=== PATIENT | male | born 1995 | race African-American/Black ===

== ENCOUNTER 2017-11-14 23:31 | Emergency (ER) | payer BC, OTHER ==
[~2017-11-14] VITALS: Ht 175.3 cm; Wt 59.4 kg
[~2017-11-14 23:31] MED LIST: MULT-506 PO
[2017-11-14 23:36] VITALS: TEMP 36.9; Ht 175.3 cm; Wt 59.4 kg
--- NOTE | 2017-11-14 23:52 | EMERGENCY ROOM VISIT NOTE ---
History Report prepared by Mary: Silver Caldera Under the Supervision of: Dr. Ana Luisa Moreland D.O. First contact with patient: 23:39 Chief Complaint: ANKLE PAIN Stated Complaint: SPRAINED LT ANKLE, PAIN History of Present Illness The patient is a 22 year old male who presents to the Emergency Room with complaints of constant left ankle pain and swelling beginning 2 hours ago. The patient states he was playing basketball earlier when he landed on someone else' s foot. He reports he inverted his ankle and sprained it. The patient notes he fell to the ground, and he has rolled his ankle before. He denies taking anything for pain and any other symptoms other than his ankle pain. Source of History: patient Onset: 2 hours ago Position: ankle (left) Quality: other (pain and swelling) Timing: constant Note: Pt denies any other symptoms than his left ankle pain and swelling. Review of Systems The patient denies any injury other than his left ankle pain and swelling. Past Medical & Surgical Medical Problems: (1) No Known Active Medical Problems Family History Diabetes mellitus Hypertension Kidney disease Kidney stones Social History Smoking Status: Never Smoker Marital Status: single Housing Status: lives with roommate Occupation Status: [employer] student Current/Historical Medications No Active Prescriptions or Reported Meds Allergies Coded Allergies: No Known Allergies (Unverified , 11/14/17) Physical Exam Vital Signs Date Time Temp Pulse Resp B/P (MAP) Pulse Ox O2 Delivery O2 Flow Rate FiO2 11/15/17 00:50 56 20 118/70 95 11/14/17 23:36 36.9 62 18 117/71 99 Room Air Physical Exam Left lower extremity exam: No tenderness with palpation of the left knee or tibial plateau or fibular head. Significant edema over the later malleolus. Tenderness to palpation over the talofibular ligament. slight pain over the 5th metatarsal. Medical Decision & Procedures ER Provider Diagnostic Interpretation: X-ray results as stated below per interpretation by me: Left Ankle X-ray: Significant soft tissue swelling over the lateral aspect of the ankle. Ankle mortis appears normal. No fractures noted. Left Foot X-ray: No 5th metatarsal fracture. Medications Administered Medications (Trade) Dose Ordered Sig/Bhavani Route Start Time Stop Time Status Last Admin Dose Admin Ibuprofen (Motrin Tab) 600 mg NOW STAT PO 11/14/17 23:54 11/14/17 23:55 DC 11/15/17 00:00 600 MG Procedure 2354: Ordered Ibuprofen 600mg PO ED Course 2330: Past medical records reviewed. The patient was evaluated in room A11B. A complete history and physical exam was performed. Patient went for plain films of the left ankle as described above. 2354: Ordered Ibuprofen 600mg PO 0027: Upon reevaluation, the patient has shown relief after medication. I discussed findings and results with him. He was placed into a gel splint and given instructions on crutches. He verbalized agreement of the treatment plan. The patient was discharged home. Medical Decision The patient is a 22 year old male who presents to the ED with left ankle pain and swelling. Differential diagnosis includes 5th metatarsal fracture, ankle fracture, ankle sprain. There were no fractures identified on the foot or ankle x-rays. The patient describes a long history of previous sprains to the ankle. He was placed in a gel splint to use when he is able to bear weight. Until then, the patient can use crutches. I have encouraged him to keep the ankle elevated and iced. He can use NSAIDs for pain. Head Trauma GCS Score: 15 Medication Reconcilliation Current Medication List: was personally reviewed by me Blood Pressure Screening Patient's blood pressure: Normal blood pressure Blood pressure disposition: Did not require urgent referral Impression Primary Impression: Sprain of talofibular ligament of left ankle Scribe Attestation The scribe's documentation has been prepared under my direction and personally reviewed by me in its entirety. I confirm that the note above accurately reflects all work, treatment, procedures, and medical decision making performed by me. Departure Information Dispostion Home / Self-Care Prescriptions No Active Prescriptions or Reported Meds Referrals [facility] Forms HOME CARE DOCUMENTATION FORM, IMPORTANT VISIT INFORMATION Patient Instructions My [facility], Sprain Ankle Tx Additional Instructions Rest with the left ankle elevated Ice it. Use motrin for pain. Use crutches until you are able to bear weight Wear gel splint for support Follow up with Ortho if pain persists
[2017-11-14] MEDS ORDERED: IBUPROFEN 600 MG TAB PO STA (23:54)
[2017-11-15 00:50] VITALS: BP 118/70; PULSE 56; O2SAT 95
--- NOTE | 2017-11-15 06:33 | DIAGNOSTIC IMAGING REPORT ---
L ANKLE MIN 3 VIEWS ROUTINE CLINICAL HISTORY: left lateral ankle pain pain COMPARISON: None. DISCUSSION: The bones and joint spaces appear intact. There is no evidence of fracture, dislocation or bony disease. Mild lateral soft tissue edema. Small avulsion tip medial malleolus felt to be old IMPRESSION: Mild lateral soft tissue edema. No acute process. The above report was generated using voice recognition software. It may contain grammatical, syntax or spelling errors. Electronically signed by: Marcos Mustafa M.D. 11/15/2017 6:31 AM Dictated Date/Time: 11/15/2017 6:26 AM
--- NOTE | 2017-11-15 06:36 | DIAGNOSTIC IMAGING REPORT ---
L FOOT MIN 3 VIEWS ROUTINE CLINICAL HISTORY: left lateral foot pain pain COMPARISON: None. DISCUSSION: The bones and joint spaces appear intact. There is no evidence of fracture, dislocation or bony disease. There is no evidence for soft tissue swelling. IMPRESSION: Negative study. The above report was generated using voice recognition software. It may contain grammatical, syntax or spelling errors. Electronically signed by: Marcos Mustafa M.D. 11/15/2017 6:34 AM Dictated Date/Time: 11/15/2017 6:32 AM
== END 2017-11-15 00:52 | disposition home or self-care (01) ==
LOC: C.EDB 23:33 → C.EDA 11-15 00:52
DX: S93.492A Sprain of other ligament of left ankle, initial encounter (principal); W03.XXXA Other fall on same level due to collision with another person, initial encounter; Y93.67 Activity, basketball